=== PATIENT | male | born 1940 | race Caucasian/White ===

== ENCOUNTER 2021-01-27 06:37 | Emergency (ER) | payer MEDICARE, OTHER ==
[~2021-01-27] VITALS: Ht 172.7 cm; Wt 75.0 kg
[2021-01-27] MEDS ORDERED: MECLIZINE CHEWABLE 25 MG TAB PO ONE (07:00)
[2021-01-27] MEDS ORDERED: SODIUM CHLORIDE 0.9% 1,000ML IVBOLUS ONE (07:00)
[2021-01-27] MEDS ORDERED: SODIUM CHLORIDE FLUSH 10ML SYR IVF ONE (07:00)
[2021-01-27] MEDS ORDERED: DIAZEPAM 5 MG/ML, 2ML IVPush ONE (07:00)
--- NOTE | 2021-01-27 07:01 | NUR ---
ASSUMING CARE OF PT AFTER BEDSIDE REPORT FROM KINDRA PINEDA. VSS. SHIPMAN.
--- NOTE | 2021-01-27 07:01 | NUR ---
REPORT GIVEN TO EDWIN METZ
[2021-01-27] MEDS ORDERED: DIAZEPAM 5 MG/ML, 2ML ONE (07:06)
[2021-01-27] MEDS ORDERED: MECLIZINE CHEWABLE 25 MG TAB ONE (07:09)
[2021-01-27 07:11] LABS: BASOPHILS % (AUTO) 1 % (0-1); EOSINOPHILS % (AUTO) 2 % (1-7); LYMPHOCYTES % (AUTO) 7 % (22-44); MEAN CORPUSCULAR HEMOGLOBIN 30.2 pg (27.5-34.5); MEAN CORPUSCULAR HGB CONC 33.1 g/dL (33.2-36.2); MEAN PLATELET VOLUME 7.4 fL (7.4-10.4); MONOCYTES % (AUTO) 8 % (2-9); NEUTROPHILS % (AUTO) 83 % (42-75); PLATELET COUNT 275 x10^3/uL (130-400); RED BLOOD COUNT 4.82 x10^6/uL (4.38-5.82); RED CELL DISTRIBUTION WIDTH 13.4 % (9.4-14.8)
--- NOTE | 2021-01-27 07:15 | NUR ---
PT MEDICATED PER EMAR. AT BEDSIDE.
[2021-01-27 07:23] LABS: ALBUMIN 3.5 g/dL (3.4-5.0); ANION GAP 8 mmol/L (5-15); CALCIUM 9.5 mg/dL (8.5-10.1); CHLORIDE 106 mmol/L (98-107); CREATININE 0.97 mg/dL (0.7-1.3)
--- NOTE | 2021-01-27 08:20 | NUR ---
DR. BROUSSARD TO BEDSIDE FOR RECHECK. VISHS. UMBERTO.
--- NOTE | 2021-01-27 08:28 | NUR ---
pt up with steady gait. nadn. reports mild dizziness but states it is much better than before.
[2021-01-27 10:18] VITALS: BP 177/98
--- NOTE | 2021-01-27 10:19 | NUR ---
Patient given discharge instructions and they have confirmed that they understand the instructions. Patient ambulatory with steady gait. NAD, all questions answered appropriately, denies additional needs at this time. No personal belongings left in room after discharge.
== END 2021-01-27 10:20 | disposition home or self-care (01) ==
LOC: ED 08:08
DX: R42 Dizziness and giddiness (principal); R11.0 Nausea; I10 Essential (primary) hypertension; R94.31 Abnormal electrocardiogram [ECG] [EKG]; Z86.73 Personal history of transient ischemic attack (TIA), and cerebral infarction without residual deficits
CPT/HCPCS: 36415; 70450; 80048; 82040; 85025; 93005; 96361; 96374; 99284; J3360; J7030